=== PATIENT | female | born 1950 | race Caucasian/White ===

== ENCOUNTER 2018-05-07 09:54 | Emergency (ER) | payer MEDICARE, BC ==
[~2018-05-07] VITALS: Ht 160 cm; Wt 64.8 kg
[2018-05-07 10:07] VITALS: BP 160/92
== END 2018-05-07 11:34 | disposition home or self-care (01) ==
LOC: ED 11:30
DX: B02.9 Zoster without complications (principal); I10 Essential (primary) hypertension; Z98.51 Tubal ligation status
CPT/HCPCS: 99283

== ENCOUNTER → 2018-11-16 | Outpatient (CLI) | payer MEDICARE, BC ==
[~2018-11-16] MED LIST: ACET-1600 PO; ATEN50TA41 PO; IPRA15SP INH; MELO15TA24 PO; PSYL0.5243 PO
[2018-11-16 10:54] LABS: MICROSCOPIC NOT IND
[2018-11-16 10:56] LABS: CULTURE INDICATED? NO
== END | disposition home or self-care (01) ==
LOC: STAR 09:27
PROVIDERS: ATTEND Orthopaedic Surgery
DX: Z01.818 Encounter for other preprocedural examination (principal); M16.11 Unilateral primary osteoarthritis, right hip
CPT/HCPCS: 81003; 93005

== ENCOUNTER 2018-11-28 09:35 | Inpatient (IN) | payer MEDICARE, BC ==
[~2018-11-28] VITALS: Ht 160 cm; Wt 73.9 kg
[~2018-11-28 09:35] MED LIST changes: +EPINEPHRINE 1 MG/ML, 1ML ONE; +KETOROLAC 60 MG/2 ML ONE; +ROPIvacaine/PF 0.2%, 20 ML ONE; +SODIUM CHLORIDE 0.9% 50 ML ONE; +TRANEXAMIC ACID 100 MG/ML, 10ML ONE
[2018-11-28] MEDS ORDERED: LACTATED RINGERS 1,000 ML IV SCH (11:15)
[2018-11-28] MEDS ORDERED: GABAPENTIN 300 MG CAPSULE PO ONE (11:30)
[2018-11-28] MEDS ORDERED: VANCOMYCIN 1,300 MG in SODIUM CHLORIDE 0.9% 250 ML IV ONE (11:30)
[2018-11-28] MEDS ORDERED: VANCOMYCIN PER PHARMACY MC PRN (11:30)
[2018-11-28] MEDS ORDERED: ACETAMINOPHEN 500 MG TABLET PO ONE (11:30)
[2018-11-28 11:42] VITALS: BP 153/96
[2018-11-28] MEDS ORDERED: MIDAZOLAM 1 MG/ML, 2ML ONE (12:23)
[2018-11-28] MEDS ORDERED: FENTANYL PF 250 MCG/5ML ONE ×2 (12:23→14:39)
[2018-11-28] MEDS ORDERED: PROPOFOL 10 MG/ML, 20ML ONE ×2 (12:24→13:36)
[2018-11-28] MEDS ORDERED: ONDANSETRON 2MG/ML, 2ML ONE (12:24)
[2018-11-28] MEDS ORDERED: GLYCOPYRROLATE 0.2MG/1ML, 5ML ONE (12:24)
[2018-11-28] MEDS ORDERED: CEFAZOLIN 1,000 MG ONE (12:24)
[2018-11-28] MEDS ORDERED: NEOSTIGMINE 1 MG/ML, 10ML ONE (12:24)
[2018-11-28] MEDS ORDERED: ROCURONIUM 10MG/ML,5ML ONE (12:24)
[2018-11-28] MEDS ORDERED: D5%-0.45NACL+KCL 20MEQ 1,000 ML IV SCH (13:12)
[2018-11-28] MEDS ORDERED: PROMETHAZINE 12.5 MG SUPP PR PRN (13:30)
[2018-11-28] MEDS ORDERED: TRANEXAMIC ACID 1,000 MG in SODIUM CHLORIDE 0.9% 100 ML IVPB ONE ×2 (13:30→18:00)
[2018-11-28] MEDS ORDERED: HYDROmorphone 1 MG/ML, 1ML AMP IV PRN (13:30)
[2018-11-28] MEDS ORDERED: ALUMINUM/MAG/SIMETHICONE 30 ML UDC PO PRN (13:30)
[2018-11-28] MEDS ORDERED: PROMETHAZINE 25 MG/ML, 1ML IM PRN ×3 (13:30)
[2018-11-28] MEDS ORDERED: LABETALOL 5MG/ML, 20ML IV PRN (13:30)
[2018-11-28] MEDS ORDERED: OXYcodone 5 MG/5 ML ORAL.SOL UDC PO PRN (13:30)
[2018-11-28] MEDS ORDERED: DIPHENHYDRAMINE 50 MG CAPSULE PO PRN (13:30)
[2018-11-28] MEDS ORDERED: PROMETHAZINE 25 MG/ML, 1ML IV PRN (13:30)
[2018-11-28] MEDS ORDERED: SENNA/DOCUSATE TABLET PO PRN (13:30)
[2018-11-28] MEDS ORDERED: MEPERIDINE/PF 25MG/0.5ML IVPush PRN (13:30)
[2018-11-28] MEDS ORDERED: ONDANSETRON 2MG/ML, 2ML IV PRN ×2 (13:30)
[2018-11-28] MEDS ORDERED: HALOPERIDOL 5 MG/ML IV PRN (13:30)
[2018-11-28] MEDS ORDERED: PROMETHAZINE 25 MG SUPP PR PRN (13:30)
[2018-11-28] MEDS ORDERED: ONDANSETRON 4 MG TABLET PO PRN (13:30)
[2018-11-28] MEDS ORDERED: hydrALAzine 20 MG/ML, 1ML IV PRN (13:30)
[2018-11-28] MEDS ORDERED: MAGNESIUM HYDROXIDE 8%, 30ML UDC PO PRN (13:30)
[2018-11-28] MEDS ORDERED: CEFAZOLIN PMX 1GM/50ML 50 ML IVPB SCH (13:30)
[2018-11-28] MEDS ORDERED: MORPHINE SULFATE 4 MG/ML, 1ML IVPush PRN (13:30)
[2018-11-28] MEDS ORDERED: ONDANSETRON ODT 8 MG PO PRN (13:30)
[2018-11-28] MEDS ORDERED: FENTANYL PF 100 MCG/2ML ONE ×2 (17:21→17:40)
[2018-11-28] MEDS ORDERED: OXYcodone 5 MG/5 ML ORAL.SOL UDC ONE (17:22)
[2018-11-28] MEDS: FENTANYL PF 100 MCG/2ML IV PRN ×2 (17:24→17:32)
[2018-11-28] MEDS ORDERED: HYDROmorphone 1 MG/ML, 1ML AMP ONE ×2 (17:25→17:40)
[2018-11-28] MEDS: HYDROmorphone 2 MG/ML, 1ML IVPush PRN ×5 (17:27→17:54)
[2018-11-28] MEDS ORDERED: IPRATROPIUM 0.5 MG/2.5 ML INHA HHN PRN (19:30)
[2018-11-28] MEDS: ASPIRIN 81 MG TABLET EC PO SCH (19:48)
[2018-11-28 20:00] VITALS: BP 101/61
[2018-11-28] MEDS: DOCUSATE 100 MG CAPSULE PO SCH (20:48)
[2018-11-28] MEDS: OXYcodone IR 5MG TABLET PO PRN (23:20)
[2018-11-28] MEDS: CEFAZOLIN PMX 1GM/50ML 50 ML IVPB SCH (23:21)
[2018-11-29] MEDS: OXYcodone IR 5MG TABLET PO PRN ×3 (00:05→21:52)
[2018-11-29 04:50] VITALS: BP 91/57
[2018-11-29] MEDS: ACETAMINOPHEN 650 MG/20.3 ML UDC PO PRN ×2 (04:53→09:01)
[2018-11-29] MEDS: ASPIRIN 81 MG TABLET EC PO SCH ×2 (05:41→18:12)
[2018-11-29] MEDS ORDERED: DEXAMETHASONE 4 MG/ML, 1ML IVPush SCH (06:00)
[2018-11-29] MEDS: ATENOLOL 50 MG TABLET PO SCH (06:00)
[2018-11-29] MEDS: CEFAZOLIN PMX 1GM/50ML 50 ML IVPB SCH (07:17)
[2018-11-29 08:49] VITALS: BP 95/59
[2018-11-29] MEDS: TAMSULOSIN 0.4 MG CAP.ER.24H PO SCH (08:58)
[2018-11-29] MEDS: DOCUSATE 100 MG CAPSULE PO SCH ×2 (09:01→21:52)
[2018-11-29] MEDS: D5%-0.45NACL+KCL 20MEQ 1,000 ML IV SCH ×2 (11:24→18:57)
[2018-11-29 13:23] VITALS: BP 101/60
[2018-11-29] MEDS: KETOROLAC 30 MG/1 ML IV SCH ×2 (13:39→21:52)
[2018-11-29 16:45] VITALS: BP 105/67
[2018-11-29 20:32] VITALS: BP 102/65
[2018-11-30] MEDS: D5%-0.45NACL+KCL 20MEQ 1,000 ML IV SCH ×2 (00:52→09:12)
[2018-11-30 01:42] VITALS: BP 113/66
[2018-11-30] MEDS: OXYcodone IR 5MG TABLET PO PRN ×2 (04:43→08:19)
[2018-11-30 05:14] LABS: MEAN CORPUSCULAR HEMOGLOBIN 31.2 pg (27.0-34.8); MEAN CORPUSCULAR HGB CONC 33.8 g/dL (32.4-35.8); MEAN CORPUSCULAR VOLUME 92.5 fL (80-100); MEAN PLATELET VOLUME 8.1 fL (7.4-10.4); PLATELET COUNT 190 x10^3/uL (130-400); RED BLOOD COUNT 2.41 x10^6/uL (3.82-5.3); RED CELL DISTRIBUTION WIDTH 14.5 % (9.6-15.2)
[2018-11-30 05:21] LABS: ANION GAP 5 mmol/L (5-15); CALCIUM 7.5 mg/dL (8.5-10.1); CHLORIDE 104 mmol/L (98-107); CREATININE 0.59 mg/dL (0.55-1.02)
[2018-11-30] MEDS: KETOROLAC 30 MG/1 ML IV SCH (05:30)
[2018-11-30 05:33] VITALS: BP 110/71
[2018-11-30 05:53] LABS: BASOPHILS # (AUTO) 0.01 x10^3/uL (0-0.1); BASOPHILS % (AUTO) 0 % (0-1); EOSINOPHILS % (AUTO) 0 % (1-7); LYMPHOCYTES # (AUTO) 1.14 x10^3/uL (1-3.4); LYMPHOCYTES % (AUTO) 16 % (22-44); MD SCAN; MONOCYTES # (AUTO) 0.53 x10^3/uL (0.2-0.8); MONOCYTES % (AUTO) 8 % (2-9); NEUTROPHILS # (AUTO) 5.29 x10^3/uL (1.8-6.8); NEUTROPHILS % (AUTO) 76 % (42-75)
[2018-11-30] MEDS: ATENOLOL 50 MG TABLET PO SCH (05:54)
[2018-11-30] MEDS: ASPIRIN 81 MG TABLET EC PO SCH (06:01)
[2018-11-30] MEDS: DOCUSATE 100 MG CAPSULE PO SCH (08:19)
[2018-11-30 08:20] VITALS: BP 122/75
[2018-11-30] MEDS: TAMSULOSIN 0.4 MG CAP.ER.24H PO SCH (08:20)
== END 2018-11-30 09:20 | disposition home or self-care (01) | DRG 466 ==
LOC: ORIP 10:40 → 4NOR 19:00 → DCLOUNGE 11-30 09:10
PROVIDERS: ADMIT Orthopaedic Surgery; ATTEND Orthopaedic Surgery
PROC: 0SP90JZ Removal of Synthetic Substitute from Right Hip Joint, Open Approach (ICD-10-PCS; 2018-11-28)
PROC: 0QS804Z Reposition Right Femoral Shaft with Internal Fixation Device, Open Approach (ICD-10-PCS; 2018-11-28)
PROC: 0SR903A Replacement of Right Hip Joint with Ceramic Synthetic Substitute, Uncemented, Open Approach (ICD-10-PCS; principal; 2018-11-28 12:00)
DX: T84.022A Instability of internal right knee prosthesis, initial encounter (principal); R53.2 Functional quadriplegia; M97.01XA Periprosthetic fracture around internal prosthetic right hip joint, initial encounter; E11.9 Type 2 diabetes mellitus without complications; I10 Essential (primary) hypertension; Y79.2 Prosthetic and other implants, materials and accessory orthopedic devices associated with adverse incidents; Y92.89 Other specified places as the place of occurrence of the external cause
CPT/HCPCS: 36415; 72170; 80048; 85014; 85018; 85025; 86850; 86900; C1713; G0378; J0171; J0690; J1100; J1170; J1885; J2250; J2405; J2704; J2710; J2795; J3010; J3370; J3490; C1762; C1776; J3480; J7050; J7120

== ENCOUNTER 2020-11-01 08:47 | Outpatient (CLI) | payer MEDICARE, BC ==
[~2020-11-01 08:47] MED LIST changes: -EPINEPHRINE 1 MG/ML, 1ML ONE; -KETOROLAC 60 MG/2 ML ONE; -ROPIvacaine/PF 0.2%, 20 ML ONE; -SODIUM CHLORIDE 0.9% 50 ML ONE; -TRANEXAMIC ACID 100 MG/ML, 10ML ONE
== END 2020-11-01 23:59 | disposition home or self-care (01) ==
LOC: CFH 08:47
PROVIDERS: ATTEND Family Medicine
DX: Z12.31 Encounter for screening mammogram for malignant neoplasm of breast (principal)
CPT/HCPCS: 77063; 77067

== ENCOUNTER 2020-11-28 09:44 | Outpatient (CLI) | payer MEDICARE, BC | END 2020-11-28 23:59 | disposition home or self-care (01) | LOC: CFH 09:44 | PROVIDERS: ATTEND Physician Assistant Medical | DX: M85.88 Other specified disorders of bone density and structure, other site (principal); M16.11 Unilateral primary osteoarthritis, right hip; I10 Essential (primary) hypertension; K52.9 Noninfective gastroenteritis and colitis, unspecified; J30.1 Allergic rhinitis due to pollen | CPT/HCPCS: 77080 ==